=== PATIENT | female | born 1960 | race Caucasian/White ===

== ENCOUNTER → 2016-12-18 | Outpatient (CLI) | payer OTHER ==
[2016-12-18 11:54] LABS: BUN 9 mg/dL (7-18)
[2016-12-18 12:10] LABS: GFR (ESTIMATED) 87 ML/MIN (59-)
== END ==
LOC: LAB 09:01
PROVIDERS: Nurse Practitioner Family
DX: E11.9 Type 2 diabetes mellitus without complications (principal); E55.9 Vitamin D deficiency, unspecified; E03.9 Hypothyroidism, unspecified